=== PATIENT | female | born 1945 ===

== ENCOUNTER → 2017-05-30 | Outpatient (CLI) | payer OTHER, MEDICARE ==
[~2017-05-30] MED LIST: BUPR200T18 PO; CALC-756 PO; KET10 PO; MET800 PO; MULT1CAP59 PO; OXYC-865 PO; PER PO
[2017-05-30 11:25] LABS: PLATELET COUNT, AUTOMATED 326 K/uL (150-450)
--- NOTE | 2017-05-30 11:28 | EKG ---
FACILITY: [facility] - [place] PATIENT NAME: AMIRA GIL : [id number] MR: [id number] V: [id number] EXAM DATE: ORDERING PHYSICIAN: TAMIKO PUENTES TECHNOLOGIST: Test Reason : PREOP - SHOULDER Blood Pressure : / mmHG Vent. Rate : 074 BPM Atrial Rate : 074 BPM P-R Int : 214 ms QRS Dur : 080 ms QT Int : 374 ms P-R-T Axes : 059 030 042 degrees QTc Int : 415 ms Sinus rhythm with 1st degree AV block Low voltage QRS Borderline ECG When compared with ECG of 14-FEB-2015 10:21, No significant change was found Confirmed by FANTASMA AMBRIZ ([id number]) on 05/30/2017 6:55:57 PM Referred By: DELORIS Confirmed By:FANTASMA AMBRIZ
== END ==
LOC: RESP 10:50
PROVIDERS: ATTEND Orthopaedic Surgery Hand Surgery
DX: Z01.812 Encounter for preprocedural laboratory examination (principal); Z01.810 Encounter for preprocedural cardiovascular examination; M25.512 Pain in left shoulder; M19.012 Primary osteoarthritis, left shoulder; M65.30 Trigger finger, unspecified finger; B96.20 Unspecified Escherichia coli [E. coli] as the cause of diseases classified elsewhere; R94.31 Abnormal electrocardiogram [ECG] [EKG]
CPT/HCPCS: 36415; 81001; 82040; 82247; 82310; 82374; 82435; 82565; 82947; 84075; 84132; 84155; 84295; 84450; 84460; 84520; 85025; 87077; 87088; 87186; 93005

== ENCOUNTER 2017-06-20 01:13 | Inpatient (IN) | payer OTHER, MEDICARE ==
[2017-06-19 15:53] LABS: INR 0.99
[~2017-06-20] VITALS: Ht 157.5 cm; Wt 88.5 kg
[2017-06-20] VITALS (10 sets, daily range): BP systolic 106–144; BP diastolic 27–89; Ht 157.5 cm; Wt 88.5 kg
[~2017-06-20 01:13] MED LIST changes: +CELE-1 PO; +DICL100G39 TOP; +MONT10TA PO
[2017-06-20] MEDS ORDERED: TRANEXAMIC AC 1000 MG/10ML SDV 1,000 MG in DEXTROSE 5% 50 ML BAG 50 ML IV ONE (07:45)
[2017-06-20] MEDS ORDERED: cloNIDine EPIDUR INJ 100MCG/ML 40 MCG, ROPIVACAINE 0.5% 20 ML VIAL 25 ML, EPINEPHrine H... INJ ONE (07:45)
[2017-06-20] MEDS ORDERED: FAMOTIDINE 20 MG TAB PO ONE (07:45)
[2017-06-20] MEDS ORDERED: MIDAZOLAM 2 MG/2 ML VIAL IVP PRN (07:45)
[2017-06-20] MEDS ORDERED: LIDOCAINE/SOD BICARB 8.4% SYR ID ONE (07:45)
[2017-06-20] MEDS ORDERED: NORMOSOL R SOLN(*) 1000 ML BAG 1,000 ML IV PRN (07:45)
[2017-06-20] MEDS ORDERED: fentaNYL CITR 250 MCG/5 ML AMP ONE (08:05)
[2017-06-20] MEDS ORDERED: LIDOCAINE 2% IV 100 MG/5ML SYR ONE (08:06)
[2017-06-20] MEDS ORDERED: PROPOFOL EMUL(*) 10MG/ML 20 ML 20 ML ONE (08:06)
[2017-06-20] MEDS ORDERED: ceFAZolin(*) 1 GM VIAL 1 GM in NS(*) 0.9% 100 ML ADDVANT BAG 100 ML IVPB ONE (09:00)
[2017-06-20] MEDS ORDERED: ROCURONIUM BROM 10 MG/ML 10 ML ONE (10:30)
[2017-06-20] MEDS ORDERED: KETAMINE HCL 200 MG/20 ML MDV ONE (10:34)
[2017-06-20] MEDS ORDERED: DEXAMETHASONE SOD 4 MG/ML VIAL ONE (10:36)
[2017-06-20] MEDS ORDERED: ONDANSETRON 4 MG/2 ML VIAL ONE (10:37)
[2017-06-20] MEDS ORDERED: SUGAMMADEX SOD 200 MG/2 ML SDV ONE (11:54)
[2017-06-20] MEDS ORDERED: fentaNYL CITR 100 MCG/2 ML AMP ONE ×3 (12:05→13:04)
[2017-06-20] MEDS ORDERED: WATER STERILE IRRIG(*) 1000ML 1,000 ML ONE (13:19)
[2017-06-20] MEDS ORDERED: PROMETHAZINE 25 MG/ML 1 ML AMP IVP PRN (13:30)
[2017-06-20] MEDS ORDERED: diphenhydrAMINE 25 MG CAP PO PRN (13:30)
[2017-06-20] MEDS ORDERED: KCL/D5LR 20 MEQ/1000 ML PREMIX 1,000 ML IV PRN (13:30)
[2017-06-20] MEDS ORDERED: NALOXONE HCL 0.4 MG/ML VIAL IVP PRN (13:30)
[2017-06-20] MEDS ORDERED: ACETAMINOPHEN 500 MG TAB PO PRN (13:30)
[2017-06-20] MEDS ORDERED: MAGNESIUM CITRATE 300 ML BTL PO PRN (13:30)
[2017-06-20] MEDS ORDERED: FLUSH 10 ML SYR IVP PRN (13:30)
[2017-06-20] MEDS ORDERED: MORPHINE SULFATE 30 MG PCA IV PRN (13:30)
[2017-06-20] MEDS ORDERED: ONDANSETRON 4 MG/2 ML VIAL IVP PRN (13:30)
[2017-06-20] MEDS: HYDROmorphone HCL 2 MG/ML SDV ONE (13:35)
--- NOTE | 2017-06-20 14:48 | RADIOLOGY IMAGING REPORT ---
FACILITY: [facility] PATIENT NAME: Missy Díaz : 1945 MR: [id number] V: [id number] EXAM DATE: ORDERING PHYSICIAN: TAMIKO PUENTES TECHNOLOGIST: Location: [facility] - [place] Patient: Missy Díaz : 1945 Visit/Account:[id number] Date of Sevice: 06/20/2017 Exam type: SHOULDER 1 VIEW LEFT History: CONFIRM PLACEMENT Comparison: January 12, 2017. Findings: There is a reverse left shoulder arthroplasty that appears in good anatomic alignment. Soft tissue g as is seen adjacent to the prosthesis on this postoperative image. Incidentally noted although incom pletely imaged are postsurgical changes of the thoracic spine from posterior fusion IMPRESSION: 1. As above Report Dictated By: Idania Lewis MD at 06/20/2017 2:43 PM Report E-Signed By: Idania Lewis MD at 06/20/2017 2:45 PM WSN:[email or web address]
[2017-06-20] MEDS ORDERED: CELECOXIB 200 MG CAP PO PRN (15:15)
[2017-06-20] MEDS ORDERED: METAXALONE 800 MG TAB PO PRN (15:15)
[2017-06-20] MEDS ORDERED: DICLOFENAC SODIUM 1% TOP SCH (15:15)
[2017-06-20] MEDS: ceFAZolin 1 GM VIAL IVP SCH (17:27)
--- NOTE | 2017-06-20 17:41 | Hospitalist Consultation ---
History of Present Illness Requesting Physician Dr. Puentes Reason for Consult Medical management Chief Complaint s/p L-TSA History of Present Illness Mrs. Díaz is a 72 y.o female with PMH of Depression on Wellbutrin, Allergies on Singulair and h/o arthritis of her L-shoulder. She underwent L-TSA by . She tolerated the procedure and anesthesia well. I was asked to evaluate this patient for her medical management during her hospital stay. She is asymptomatic and without complaint. History Home Meds Reported Medications Diclofenac Sodium 1% Gel (VOLTAREN 1% GEL) 100 Gm Gel..gram., 100 GM TOP PRN 06/12/17 Celecoxib (CELEBREX) 200 Mg Capsule, 200 MG PO PRN, CAPSULE 06/12/17 Montelukast Sodium (SINGULAIR) 10 Mg Tablet, 1 TAB PO PRN, TAB 06/12/17 Metaxalone (Skelaxin) 800 Mg Tab, 0.5 TAB PO QHS Y for BACK SPASM, 0 Refills 07/12/10 Bupropion Hcl (Wellbutrin Sr) 200 Mg Tablet.sa, 200 MG PO BID, 0 Refills 07/12/10 Allergies: Uncoded Allergies: Hayfever (Allergy, Intermediate, UNKNOWN, 08/07/11) Patient History: FH: CHF (congestive heart failure) FATHER FH: colon cancer FATHER FH: stroke MOTHER Hx Smoking: No (LION 1987) Smoking Status: Former Smoker Caffeine Intake: Coffee Caffeine/Cups Per Day: 1 C/D Hx Alcohol Use: Yes Hx Substance Use Disorder: No Social Drug Use: Never History of IV Drug Use: No Review of Systems Constitutional: No Fever Neurological: Dizziness, No Weakness Cardiovascular: No Chest Pain Respiratory: No Shortness of Breath, No Cough Gastrointestinal: No Nausea, No Vomiting, No Diarrhea, No Abdominal Pain Genitourinary: No Dysuria, No Hematuria Musculoskeletal: Pain, No Sprain, No Strain Psychiatric: Depression, No Anxiety Exam Vital Signs Vital Signs Date Time Temp Pulse Resp B/P (MAP) Pulse Ox O2 Delivery O2 Flow Rate FiO2 06/20/17 14:57 98.7 70 16 128/67 (87) 98 Nasal Cannula 4.0 General Appearance: Alert, Awake, Afebrile Neuro: No Gross deficits Eyes: PERRLA ENT: Normal Cardiovascular: Regular Rate and Rhythm Respiratory: No Respiratory Distress GI: Abd Soft and Non-Tender Extremities: Soft and Non Tender, No Other (L-shoulder tenderness and decrease ROM) Integumentary: Skin Intact without Lesion / Mass Psych: Alert & Oriented X3, Appropriate Mood & Affect Medical Decision Making Data Points Result Diagram: 06/20/17 1304 Pre-Admit Course Medical Record Review: Yes Assessment and Plan Problems: (1) Status post total shoulder arthroplasty Status: Acute Assessment & Plan: Management as per surgery and PT Pain management per surgery OOB to ambulation I will use SCD's for her DVTP (2) Depression Status: Chronic Assessment & Plan: She is asymptomatic with good spirit I will resume her Wellbutrin Central Venous Access Medical Necessity for Access: IV Access Time Spent on Plan of Care: < 30 min Copies to: TAMIKO PUENTES MD Venous Thromboembolism VTE Risk Physician Assess for VTE Risk: Yes Patient's VTE Risk: Low VTE Diagnostic Test 2 Days Prior to Admit: No Antithrombotics Is Pt On Any Antithrombotics?: No Problem Qualifiers (1) Status post total shoulder arthroplasty: Laterality: left Qualified Codes: Z96.612 - Presence of left artificial shoulder joint DANIKA FERNANDEZ MD Jun 20, 2017 17:41
--- NOTE | 2017-06-20 18:26 | OPERATIVE REPORT 1 ---
EVENT DATE: June 20, 2017 SURGEON: Casper Tsai MD ANESTHESIOLOGIST: Reggie Amaya MD ANESTHESIA: General. WOLF HUNTER: MISTI Ortiz PREOPERATIVE DIAGNOSES 1. Left shoulder cuff tear arthropathy. 2. Left ring stenosing tenosynovitis. POSTOPERATIVE DIAGNOSES 1. Left shoulder cuff tear arthropathy. 2. Left ring stenosing tenosynovitis. PROCEDURES PERFORMED 1. Left reverse total shoulder arthroplasty. 2. Left ring A1 richelle release. ESTIMATED BLOOD LOSS 100 mL INTRAVENOUS FLUIDS Crystalloid 1550 mL. No colloid. TOURNIQUET TIME None. SPECIMENS None. COMPLICATIONS None. IMPLANTS Delta Xtend Reverse Arthroplasty with a standard metaglene, a 38 eccentric glenosphere, a size 10 stem with a size 1 left eccentric epiphysis, and a 38, + 3 cup, using a 30 mm and a 24 mm locking screw and two 18 mm nonlocking screws. SUMMARY OF PROCEDURE The patient was evaluated in the preoperative holding area. She had reported that the ring finger continued to trigger in the mornings, but would usually get better by mid morning. The long finger had occasionally bothered her, but she did not feel it was bad enough to justify surgical release at this time. The shoulder continued to give her a lot of trouble. She was brought to the operating room, and her left upper extremity was prepped and draped in the usual sterile fashion, free draping the shoulder. A deltopectoral approach was taken. The cephalic vein was identified and moved laterally with the deltoid. There really was no appreciable subscapularis remaining, nor was there any other cuff tissue. The shoulder was essentially bare. We identified the conjoined tendon and retracted it a bit to the medial side. I tried palpating for the axillary nerve like I usually do, but since the subscapularis was gone, the normal anatomy and tension were absent, and there were a lot of fibrous bands under the shoulder in the axillary region. I could not identify with certainty which one would have been the axillary nerve. I did palpate one that I think was probably it, but I could not identify it with enough accuracy to confirm after the case that that was the same one and that the tension was still normal, so we would have to go without formal identification. We started with bringing the shoulder forward and out of the joint which was quite easy since there was no cuff remaining. The fluid within the shoulder joint was clear. There was not really any true capsule. I did release the top 1 cm of the pectoralis tendon to allow for better exposure. There was no biceps tendon. There was a moderate amount of osteophytes, but it was not as severe as we sometimes see. We had to use a drill to get through the center portion of the head 1 cm posterior to the biceps groove. We then drilled progressively higher. Her ideal size would have been a 9, but there is no 9, so we ended up selecting a 10 and had to ream with the mechanical reamer for about 0.7 inch, and that got us down to where we needed to be. We then did a deltopectoral cut at 10 retroversion and removed that portion of the head. We protected the cut surface with a metal cap and then retracted the humeral shaft inferiorly and posteriorly. After releasing more of the capsule on the neck of the humerus, I also released circumferentially around the glenoid using a Darrach retractor and a Fukuda retractor. When we had released sufficiently and removed soft tissue around the glenoid, I then used the rabbit ear retractor to push the humeral head down and posteriorly with the ears of the rabbit ear retractor holding the body of the scapula. At this time, I was able to gain good access to the glenoid. We did an initial reaming, followed by use of the superior reamer and then a trial which fit well, so I did the central drilling and then inserted the metaglene. We did two locking screws superior and inferior and two nonlocking screws anterior and posterior. Despite the fact that the screw length was not ideal (I would have liked to have seen a 36 on the locking screws ), the purchase was outstanding on all of them. Even the nonlocking screws that were very short had good purchase. Having done this, we then inserted the eccentric 38 mm glenosphere and then proceeded to go back to the humerus. The humerus was once again exposed, and we progressively prepared the shaft by doing the initial broaching. Measuring the rocker bar at 10 and then trialing, it looked like we would need an eccentric, so we did use the size 1 eccentric and reamed for this and then inserted the trial. It was secured with a +3, 38, and reduced to the glenosphere. It had very good tracking. It did not pull away from the joint as I pulled down, and also was able to demonstrate full range of motion without any buckling or resistance. I dislocated the shoulder with some difficulty (which is usually a good sign), and then we removed the trial and went ahead with the press-fit final implant which was hydroxyapatite coated. The final implant was assembled, again with the 10-degree variance and the eccentric head. We inserted it into the humerus. The anterior portion of the humeral margin had cracked along the osteophytes, but we carefully examined the shaft, and there was no extension of the fracture down there, and the fragments that had broken off were really mostly osteophyte anyway, but I left them in place because it created some bone stock and coverage of the upper shelf of the epiphyseal element. They were not unstable. Once the implant was fully impacted, I rocked it [id number] and twisted it, and there was no micromotion seen. We inserted the +3 trial, impacted it into position, and then reduced the shoulder having irrigated the wound before doing so. We ranged it again. It looked good. We irrigated one more time and then injected local anesthetic throughout the capsule and back down by the metaglene and glenosphere as well as in the deltoid. In this particular case because she did not have a capsule or a subscapularis, I elected to repair the small upper split in the pectoralis tendon and also did a Vicryl repair of the deltopectoral interval, staying away from the cephalic vein so that we would have a waterproof closure. Subsequent to this, the wound was again irrigated, and then 3-0 Vicryl was used for the subcutaneous tissue, followed by 4-0 Monocryl for subcuticular closure. Steri-Strips were applied, and then we directed our attention to the hand. I changed gowns and gloves and then went with the ring finger A1 richelle release. We reprepped with iodine, used an Esmarch bandage for a forearm tourniquet, made a curved incision in line with the wrinkles in the skin, and dissected bluntly down to the A1 richelle. An inside blade was used to release the richelle in one small portion, after which the tenotomy scissors were used to complete the release. Right-angle hemostasis were then used to pull first the FDS and then the FDP away from the wound to ensure that there were no intertendinous adhesions. None were seen. There was a little bit of fraying on the FDS tendon that was minimal. Because she was asleep, unfortunately, we could not ask her to move her hand, but it did not appear that there would be anything further that would cause triggering. The wound was irrigated. The Esmarch bandage was removed. Bipolar cautery was used for hemostasis, followed by closure with 4-0 nylon. She was given a dry, sterile dressing. She was then awakened and transferred to the recovery area in stable condition. CIRILO
[2017-06-20] MEDS: buPROPion SR 100 MG TABSR PO SCH (21:00)
[2017-06-20] MEDS ORDERED: MONTELUKAST SODIUM 10 MG TAB PO PRN (21:00)
[2017-06-21 00:35] VITALS: BP 122/67
[2017-06-21] MEDS ORDERED: LIDOCAINE/SOD BICARB 8.4% SYR ID ONE (00:45)
[2017-06-21] MEDS: ceFAZolin 1 GM VIAL IVP SCH ×2 (01:14→08:45)
[2017-06-21 05:01] VITALS: BP 122/74
[2017-06-21 05:57] LABS: PLATELET COUNT, AUTOMATED 248 K/uL (150-450)
[2017-06-21 07:52] VITALS: BP 101/54
[2017-06-21] MEDS: buPROPion SR 100 MG TABSR PO SCH (08:44)
[2017-06-21] MEDS ORDERED: OXYC-373 PO (09:22)
[2017-06-21] MEDS ORDERED: OXYC-823 PO (09:23)
== END 2017-06-21 11:25 | disposition home or self-care (01) | DRG 483 ==
LOC: OR 01:13 → MED 14:44
PROVIDERS: ADMIT Orthopaedic Surgery Hand Surgery; ATTEND Orthopaedic Surgery Hand Surgery
PROC: 0RRK00Z Replacement of Left Shoulder Joint with Reverse Ball and Socket Synthetic Substitute, Open Approach (ICD-10-PCS; principal; 2017-06-20 10:20)
PROC: 0LN80ZZ Release Left Hand Tendon, Open Approach (ICD-10-PCS; 2017-06-20 10:20)
DX: M75.122 Complete rotator cuff tear or rupture of left shoulder, not specified as traumatic (principal); M65.812 Other synovitis and tenosynovitis, left shoulder; M65.342 Trigger finger, left ring finger; G47.33 Obstructive sleep apnea (adult) (pediatric); J45.909 Unspecified asthma, uncomplicated; E66.9 Obesity, unspecified; F32.9 Major depressive disorder, single episode, unspecified; H91.91 Unspecified hearing loss, right ear; Z68.35 Body mass index [BMI] 35.0-35.9, adult; Z90.49 Acquired absence of other specified parts of digestive tract; Z99.81 Dependence on supplemental oxygen; Z98.1 Arthrodesis status; Z87.891 Personal history of nicotine dependence
CPT/HCPCS: 36415; 85014; 85018; 85025; 85610; 86850; 86900; 86901; 97165; C1713; C1776; J0171; J0690; J0735; J1100; J1170; J1885; J2001; J2405; J2704; J2795; J3010; J3490; J7050; J7060